=== PATIENT | male | born 2000 | race Caucasian/White ===

== ENCOUNTER 2020-05-18 19:13 | Emergency (ER) | payer SELFPAY ==
[~2020-05-18] VITALS: Ht 180.3 cm; Wt 59.8 kg
--- NOTE | 2020-05-18 19:36 | ED General ---
General Chief Complaint: - Urinary Stated Complaint: BURNING WITH URINATION History of Present Illness Date Seen by Provider: May 18, 2020 Time Seen by Provider: 19:20 Initial Comments The patient is a 19-year-old male who is otherwise healthy. He presents for evaluation of about 5 days of mild dysuria, with burning at the tip of his penis when he tries to urinate. Associated mildly dark, cloudy urine per patient. No associated fevers, nausea or vomiting, abdominal pain of any kind, inguinal pain, testicular or scrotal or perineal or rectal pain, rashes or lesions to the groin, changes in bowel habits. Patient reports that he is not currently sexually active and that it has been a number of months since he last had intercourse. Shock does report a history of one prior urinary tract infection in the past and states that this feels very similar. Allergies and Home Medications Allergies Coded Allergies: No Known Drug Allergies (Unverified , 05/18/20) Patient Home Medication List Home Medication List Reviewed: Yes Review of Systems Review of Systems Constitutional: see HPI All Other Systems Reviewed Negative Unless Noted: Yes (Negative excepted noted.) Past [employer]-Zlgvm[facility]-Nsie[facility] Hx Past Med/Social Hx: Reviewed Nursing Past Med/Soc Hx Patient Social History Recent Foreign Travel: No Contact w/Someone Who Travel: No Family Medical History Reviewed Nursing Family Hx Physical Exam Vital Signs Vital Signs - First Documented Capillary Refill : Height, Weight, BMI Height: '" Weight: lbs. oz. kg; BMI Method: General Appearance: No Apparent Distress Comments This is a young male appearing nontoxic and in no acute distress. Head is normocephalic and atraumatic. Neck is supple and nontender. Oropharynx is moist. Lungs are clear to auscultation at all stations. There is a normal S1 and S2 without rubs or gallops and capillary refills appropriate, less than 2 seconds globally. Abdomen is soft, nontender and nondistended. Skin is warm and dry without cyanosis, clubbing or edema. Psychiatrically, the patient demonstrates appropriate mood and affect and is alert. From a genitourinary standpoint, evaluation of the groin is remarkable for no rashes or lesions to the groin, no inguinal lymphadenopathy bilaterally, no scrotal or testicular or perineal erythema, swelling, warmth or tenderness, no abnormalities noted to the penis. Progress/Results/Core Measures Suspected Sepsis SIRS Temperature: Pulse: Respiratory Rate: Blood Pressure / Mean: Results/Orders Lab Results Laboratory Tests Test 05/18/20 19:26 Range/Units Urine Color YELLOW Urine Clarity CLOUDY Urine pH 6.0 5-9 Urine Specific [place] 1.020 1.016-1.022 Urine Protein NEGATIVE NEGATIVE Urine Glucose (UA) NEGATIVE NEGATIVE Urine Ketones NEGATIVE NEGATIVE Urine Nitrite NEGATIVE NEGATIVE Urine Bilirubin NEGATIVE NEGATIVE Urine Urobilinogen 0.2 < = 1.0 MG/DL Urine Leukocyte Esterase 3+ H NEGATIVE Urine RBC (Auto) TRACE-I NEGATIVE Urine RBC 5-10 H /HPF Urine WBC >100 H /HPF Urine Crystals NONE /LPF Urine Bacteria TRACE /HPF Urine Casts NONE /LPF Urine Mucus MODERATE H /LPF Urine Culture Indicated YES My Orders Orders - MITCH HOWARD MD Ua Culture If Indicated (05/18/20 19:18) Neis Hugo Dna Urine Test (05/18/20 19:18) Chlamydia Trachomatis Urine (05/18/20 19:18) Urine Culture (05/18/20 19:26) Levofloxacin Tablet (Levaquin Tablet) (05/18/20 19:45) Vital Signs/I&O 05/18/20 05/18/20 19:20 19:20 Temp 36.9 36.9 Pulse 81 81 Resp 16 16 B/P (MAP) 142/71 142/71 Pulse Ox 100 100 O2 Delivery Room Air Room Air Capillary Refill : Progress Note : Time: 19:35 Progress Note 19-year-old male with 5 days of dysuria, states feels very similar to prior UTI. Not currently sexually active. We will check urinalysis and urine gonorrhea and chlamydia but will hold off on empiric treatment for STDs given history. 1940: UA positive. Will treat with levofloxacin x5 days. Culture will be sent. Will refer patient to [facility] for close follow-up in the office in the next 2-4 days. He understands that if he feels worse is that of better or develops other new symptoms of concern that he will need to return to the emergency department immediately for reevaluation. All questions are answered. Departure Impression Primary Impression: Acute cystitis Qualified Codes: N30.00 - Acute cystitis without hematuria Disposition: HOME, SELF-CARE Condition: Improved Departure-Patient Inst. Referrals: SELFKACY MD Patient Instructions: Urinary Tract Infection, Adult (DC) Add. Discharge Instructions: Follow-up very closely in the next 2-4 days in the office with Dr. Mckeon in the [facility] clinic (phone # provided) for a reevaluation of your symptoms and a discussion of next best steps in care. Take the antibiotic daily as prescribed, beginning tomorrow, until it is gone. You may use ibuprofen as needed for any discomfort. Return to the emergency department right away with worsening symptoms of any kind or with any other new symptoms of concern. Scripts [levaquin 750mg tab] No Conflict Check 1 TAB PO DAILY for 4 Days, #4 TAB Prov: MITCH HOWARD MD 05/18/20 MITCH HOWARD MD May 18, 2020 19:36
[2020-05-18 19:40] LABS: BACTERIA,URINE TRACE /HPF; BILIRUBIN,URINE NEGATIVE (NEGATIVE); CLARITY,URINE CLOUDY; COLOR,URINE YELLOW; GLUCOSE, URINE (UA) NEGATIVE (NEGATIVE); KETONES,URINE NEGATIVE (NEGATIVE); LEUKOCYTE ESTERASE ,URINE 3+ (NEGATIVE); NITRITE,URINE NEGATIVE (NEGATIVE); PROTEIN,URINE NEGATIVE (NEGATIVE); WBC,URINE >100 /HPF
[2020-05-18] MEDS ORDERED: LEVOFLOXACIN 500 MG TAB (LEVAQUIN) PO ONE (19:45)
[2020-05-18] MEDS ORDERED: LEVAQUIN 750 MG PO (19:51)
== END 2020-05-18 20:04 | disposition home or self-care (01) ==
LOC: ER FS 19:17
DX: N30.00 Acute cystitis without hematuria (principal)
CPT/HCPCS: 36415; 81000; 87088; 87491; 87591; 99283

== ENCOUNTER 2022-02-20 23:10 | Emergency (ER) | payer SELFPAY ==
[~2022-02-20] VITALS: Ht 185 cm; Wt 68.0 kg
[~2022-02-20 23:10] MED LIST: LEVAQUIN 750 MG PO
[2022-02-20] MEDS ORDERED: LIDOCAINE 1% INJ 50 ML (XYLOCAINE) VIAL ONE (23:29)
[2022-02-20] MEDS ORDERED: LIDOCAINE 1% INJ 20 ML VIAL INJ ONE (23:30)
--- NOTE | 2022-02-20 23:50 | ED Lower Extremity ---
General Chief Complaint: Laceration Stated Complaint: HEAD INJURY Nursing Triage Note: patient states cut his right hand with a broken glass, then he slipped and fell on the broken glass. Laceration to rt palm, posterior head 2 lacerations, abrasion to upper neck. Source: patient Exam Limitations: no limitations History of Present Illness Date Seen by Provider: Feb 20, 2022 Time Seen by Provider: 23:15 Initial Comments Patient is a 21-year-old left-handed male who presents with multiple lacerations to his posterior scalp and left hand. Patient states he was walking with a [place] when he fell lacerating his head and posterior scalp. The injury occurred just prior to ED arrival. Patient has a 2 cm full-thickness checkmark shaped laceration to the ulnar aspect of his L mid hand, and 2 cm full-thickness laceration to posterior scalp with 2 adjacent superficial scalp lacerations. Bleeding is controlled. Patient denies foreign body sensation and wounds or numbness and tingling in left hand. No loss of finger use. No other symptoms or complaints. Tetanus is up-to-date. Onset: just prior to arrival Pain/Injury Location: bilateral other Method of Injury: incised, other Modifying Factors: Improves With Other Allergies and Home Medications Allergies Coded Allergies: No Known Drug Allergies (Unverified , 05/18/20) Patient Home Medication List Home Medication List Reviewed: Yes [levaquin 750mg tab] , 1 TAB PO DAILY Prescribed by: MITCH HOWARD on 05/18/201950 Review of Systems Constitutional: see HPI EENTM: see HPI Skin: see HPI Past Slujmqy-Vobvsr-Ipibtl Hx Patient Social History Tobacco Use?: No Seasonal Allergies Seasonal Allergies: No Past Medical History Surgeries: No Respiratory: No Cardiac: No Neurological: No Genitourinary: No Gastrointestinal: No Musculoskeletal: No Endocrine: No HEENT: No Cancer: No Psychosocial: No Integumentary: No Blood Disorders: No Physical Exam Vital Signs Vital Signs - First Documented 02/20/22 23:21 Temp 36.1 Pulse 89 Resp 20 B/P (MAP) 130/70 (90) Pulse Ox 97 O2 Delivery Room Air Capillary Refill : Less Than 3 Seconds Height, Weight, BMI Height: '" Weight: lbs. oz. kg; 19.00 BMI Method: General Appearance: WD/WN, no apparent distress HEENT: PERRL/EOMI, normal ENT inspection, other (2 cm vertical full-thickness laceration to right occipital scalp with 2 adjacent superficial lacerations. No foreign bodies present. Bleeding is controlled) Neurologic/Tendon: normal sensation, normal motor functions, normal tendon functions Neurologic/Psychiatric: no motor/sensory deficits, alert Skin: other (2.5 cm full-thickness checkmark shaped laceration to ulnar aspect of left mid hand, bleeding is controlled: No foreign bodies present, no tendon or vascular injury.) Progress/Results/Core Measures Results/Orders My Orders Orders - CAYETANO YANG DO Lidocaine 1% Inj 20 Ml (Xylocaine 1% Inj (02/20/22 23:30) Lidocaine 1% Inj 50 Ml (Xylocaine 1% Inj (02/20/22 23:29) Vital Signs/I&O 02/20/22 23:21 Temp 36.1 Pulse 89 Resp 20 B/P (MAP) 130/70 (90) Pulse Ox 97 O2 Delivery Room Air Blood Pressure Mean: 90 Departure Communication (Admissions) Laceration procedure notes Wounds cleansed with saline and fully explored. Wounds are clean with no foreign bodies present. Scalp wound closed with #3 mamadou. 4 mL of 1% lidocaine injected to margins of left hand wound. Wound closed with #6, running interlocked 60 Prolene sutures with good wound edge approximation. Wounds dressed. Wounds cleansed and closed. Typical wound care instructions provided. Patient and patient's mother verbalized understanding and agreement discharge instructions prior to departure. Impression Primary Impression: Scalp laceration Additional Impression: Laceration of left hand Disposition: 01 HOME, SELF-CARE Condition: Stable Departure-Patient Inst. Decision time for Depature: 23:50 Referrals: NO,LOCAL PHYSICIAN (PCP/Family) Primary Care Physician Patient Instructions: Laceration Repair With [facility], Laceration Repair With [facility] Add. Discharge Instructions: You may wash remaining blood out of your hair upon returning home and pat dry scalp. Do not wash hair for the next 5 days as this will delay wound healing. Please keep left hand wound clean, covered and dry. May take Tylenol or ibuprofen for pain. Return to the ED in 10 days for staple and suture removal. Return sooner if signs of infection. All discharge instructions reviewed with patient and/or family. Voiced understanding. CAYETANO YANG DO Feb 20, 2022 23:50
[2022-02-20 23:57] VITALS: BP 130/70
== END 2022-02-21 00:02 | disposition home or self-care (01) ==
LOC: EDUNIT# 23:10 → ER FS 23:13
DX: S01.01XA Laceration without foreign body of scalp, initial encounter (principal); S61.412A Laceration without foreign body of left hand, initial encounter; W18.30XA Fall on same level, unspecified, initial encounter; Y93.01 Activity, walking, marching and hiking
CPT/HCPCS: 12015